=== PATIENT | female | born 1965 | race Caucasian/White ===

== ENCOUNTER 2019-03-21 12:04 | Emergency (ER) | payer OTHER, SELFPAY ==
--- NOTE | 2019-03-21 18:36 | RAD ---
RIGHT ANKLE THREE VIEWS: 03/21/2019 FINDINGS: Marked soft tissue swelling is seen laterally. There is a linear piece of bone at the tip of the lat eral malleolus, but it seems more likely that it is from old trauma than new. The ankle mortise appe ars intact, and the articular surfaces are smooth. The surrounding bones appear intact. IMPRESSION: Severe lateral swelling. Presumed old trauma at the tip of the lateral malleolus. Consider follow-u p films as needed. POS: HOME
== END 2019-03-21 13:09 | disposition home or self-care (01) ==
LOC: BURERS 12:04
DX: S93.401A Sprain of unspecified ligament of right ankle, initial encounter (principal); J45.909 Unspecified asthma, uncomplicated; X50.1XXA Overexertion from prolonged static or awkward postures, initial encounter